=== PATIENT | female | born 1960 | race Caucasian/White ===

== ENCOUNTER 2022-01-23 09:15 | Emergency (ER) | payer OTHER, BC ==
[2022-01-23] MEDS: Diphtheria,Pertussis(Acell),Tetanus Vaccine 0.5 ML SDV IM ONE (11:18)
== END 2022-01-23 11:35 | disposition home or self-care (01) ==
LOC: LB.ED 09:15
DX: S61.207A Unspecified open wound of left little finger without damage to nail, initial encounter (principal); Z23 Encounter for immunization; W23.1XXA Caught, crushed, jammed, or pinched between stationary objects, initial encounter; Y92.69 Other specified industrial and construction area as the place of occurrence of the external cause
CPT/HCPCS: 73140-F4; 90471; 90715; 99283-25

== ENCOUNTER 2022-06-09 10:58 | Emergency (ER) | payer OTHER ==
[2022-06-09] MEDS ORDERED: Methocarbamol 500 MG Tab ONE (11:30)
[2022-06-09] MEDS ORDERED: traMADol 50 MG Tab ONE (11:30)
== END 2022-06-09 11:36 | disposition home or self-care (01) ==
LOC: LB.ED 10:58
DX: S39.012A Strain of muscle, fascia and tendon of lower back, initial encounter (principal); E03.9 Hypothyroidism, unspecified; Z79.899 Other long term (current) drug therapy
CPT/HCPCS: 99283; A9270-GY

== ENCOUNTER 2023-10-06 10:45 | Emergency (ER) | payer OTHER ==
[2023-10-06 11:31] VITALS: BP 129/91; PULSE 87
[2023-10-06] MEDS: Tetracaine HCl/PF 0.5% 4 ML Bottle EYERT ONE (11:49)
== END 2023-10-06 11:55 | disposition home or self-care (01) ==
LOC: LB.ED 10:45
DX: H11.31 Conjunctival hemorrhage, right eye (principal); E03.9 Hypothyroidism, unspecified; F17.210 Nicotine dependence, cigarettes, uncomplicated; Z79.890 Hormone replacement therapy; Z79.899 Other long term (current) drug therapy
CPT/HCPCS: 99282; 99283

== ENCOUNTER 2024-07-08 09:58 | Emergency (ER) | payer OTHER ==
[2024-07-08 10:48] LABS: BASOPHILS ABSOLUTE AUTO 0.04 K/uL (0.02-0.10); BASOPHILS PERCENT AUTO 0.5 % (0.0-0.5); EOSINOPHILS PERCENT AUTO 2.7 % (1.0-5.0); HEMATOCRIT 36.8 % (37.0-47.0); HEMOGLOBIN 12.2 g/dL (11.5-16.5); LYMPHOCYTES ABSOLUTE AUTO 1.87 K/uL (1.50-4.00); LYMPHOCYTES PERCENT AUTO 24.9 % (20.0-40.0); MEAN CORPUSCULAR HEMOGLOBIN 31.5 pg (27.0-32.0); MEAN CORPUSCULAR HGB CONC 33.2 g/dL (31.0-35.0); MEAN CORPUSCULAR VOLUME 95 fL (76-96); MEAN PLATELET VOLUME 10.1 fL (6.0-10.0); MONOCYTES ABSOLUTE AUTO 0.91 K/uL (0.20-0.80); MONOCYTES PERCENT AUTO 12.1 % (3.0-10.0); NEUTROPHILS ABSOLUTE AUTO 4.49 K/uL (2.00-7.50); NEUTROPHILS PERCENT AUTO 59.8 % (45.0-70.0); PLATELET COUNT,PLT 160 K/uL (150-500); RED BLOOD CELL COUNT 3.87 M/uL (3.80-5.80); WHITE BLOOD CELL COUNT,WBC 7.5 K/uL (4.0-11.0)
[2024-07-08 11:07] LABS: A/G RATIO 1.3 (0.8-2.0); ALBUMIN 3.9 g/dL (3.4-5.0); ANION GAP 11.3 mmol/L (5.0-15.0); BILIRUBIN TOTAL 0.7 mg/dL (0.0-1.0); BUN/CREATININE RATIO 16.5 (6-25); CALCIUM 9.2 mg/dL (8.5-10.1); CARBON DIOXIDE,CO2 28.2 mmol/L (21.0-32.0); CREATININE 0.97 mg/dL (0.55-1.02); EST CRCL DRUG DOSING (CG) 54.13 mL/min; POTASSIUM,K 4.5 mmol/L (3.5-5.1); PROTEIN TOTAL,TP 6.9 g/dL (6.4-8.2)
[2024-07-08 11:12] LABS: MAGNESIUM 2.1 mg/dL (1.8-2.4); TROPONIN I HIGH SENSITIVITY 4.9 pg/ml (<=60.4)
[2024-07-08 11:26] LABS: INR 0.9 (1.0-3.5); PTT,PARTIAL THROMBOPLSTIN TIME 23.1 SECONDS (24.4-33.2)
[2024-07-08 11:27] LABS: PROTHROMBIN TIME 9.8 sec (9.0-11.5)
[2024-07-08] MEDS: Acetaminophen 500 MG Tab PO ONE (11:31)
[2024-07-08] MEDS: Cyclobenzaprine 10 MG Tab PO ONE (11:31)
[2024-07-08] MEDS: Sodium Chloride 0.9% 1,000 ML IV ONE (13:17)
== END 2024-07-08 14:55 | disposition home or self-care (01) ==
LOC: LB.ED 09:58
DX: S16.1XXA Strain of muscle, fascia and tendon at neck level, initial encounter (principal); I25.2 Old myocardial infarction; Z88.0 Allergy status to penicillin; Z79.890 Hormone replacement therapy; Z79.899 Other long term (current) drug therapy; X58.XXXA Exposure to other specified factors, initial encounter; Y93.89 Activity, other specified
CPT/HCPCS: 36415; 71045; 72040; 80053; 83735; 84484; 85025; 85610; 85730; 93005; 96360; 99285; A9270; J7030; 93010; 99283